=== PATIENT | female | born 1975 | race American Indian/Alaskan Native ===

== ENCOUNTER 2020-08-31 10:56 | Emergency (ER) | payer SELFPAY ==
[2020-08-31 11:48] VITALS: BP 146/91
--- NOTE | 2020-08-31 11:59 | Emergency Department Report ---
ED General Adult HPI - General Chief complaint: Extremity Injury, Upper Stated complaint: RT SHOUDLER PAIN RT HIP PAINS Time Seen by Provider: 08/31/20 11:40 Source: patient Mode of arrival: Ambulatory Limitations: No Limitations - History of Present Illness Initial comments: 44-year-old female with a past medical history of diabetes presents to the ER w ith complaints of right shoulder pain and right hip pain. Patient states that she has been having this right shoulder pain for few months, but she states that in June she noticed that the pain started radiating down her right arm, with numbness and tingling in her fingers. She states that the right hip pain has been intermittent for a year, but in May has been more constant. She states that the pain does radiate down into her right leg. She states that the pain in her right shoulder and her right hip is worse with movement, and with ambulation. She has been taking [id number] ibuprofen and arthritis medication without much relief. She states that she does not have a primary care doctor and has not followed up with a PCP nor exercise specialist since she has been having the symptoms. She states that she had sciatica in the past but it was during the . She denies any known history of degenerative joint disease or herniated disc. She reports no neck pain, chest pain, shortness of breath, abdominal pain, bowel or bladder incontinence, saddle anesthesia, lower extremity weakness, numbness or tingling, fever chills or any other symptoms. MD Complaint: Right shoulder pain; right hip pain -: month(s) - Related Data Previous Rx's Medication Instructions Recorded Last Taken Type Acetaminophen/Codeine [Tylenol 1 tab PO Q4HR PRN #12 tablet 08/31/20 Unknown Rx /Codeine # 3 tab] Ketorolac [Toradol] 10 mg PO Q6H PRN #20 tablet 08/31/20 Unknown Rx Allergies Allergy/AdvReac Type Severity Reaction Status Date / Time No Known Allergies Allergy Unverified 08/31/20 11:44 ED Review of Systems ROS: Stated complaint: RT SHOUDLER PAIN RT HIP PAINS Other details as noted in HPI Comment: All other systems reviewed and negative Respiratory: denies: cough, shortness of breath, wheezing Cardiovascular: denies: chest pain, palpitations, dyspnea on exertion, edema, syncope, paroxysmal nocturnal dyspnea Gastrointestinal: denies: abdominal pain, nausea, vomiting, diarrhea, constipation, hematemesis, melena, hematochezia Genitourinary: denies: urgency, dysuria, discharge Musculoskeletal: arthralgia, other (right hip pain). denies: back pain Skin: denies: rash, lesions Neurological: numbness (right fingers). denies: headache, weakness, paresthesias, confusion, abnormal gait, vertigo Psychiatric: denies: anxiety, depression ED Past Medical Hx - Past Medical History Previous Medical History?: Yes Hx Diabetes: Yes - Surgical History Past Surgical History?: Yes Additional Surgical History: tubal ligation - Social History Smoking Status: Never Smoker Substance Use Type: None - Medications Home Medications: Home Medications Medication Instructions Recorded Confirmed Last Taken Type Acetaminophen/Codeine [Tylenol 1 tab PO Q4HR PRN #12 tablet 08/31/20 Unknown Rx /Codeine # 3 tab] Ketorolac [Toradol] 10 mg PO Q6H PRN #20 tablet 08/31/20 Unknown Rx ED Physical Exam - General Limitations: No Limitations General appearance: alert, in no apparent distress - Head Head exam: Present: atraumatic, normocephalic, normal inspection - Eye Eye exam: Present: normal appearance, PERRL, EOMI Pupils: Present: normal accommodation - ENT ENT exam: Present: normal exam, mucous membranes moist - Neck Neck exam: Present: normal inspection, full ROM. Absent: tenderness - Respiratory Respiratory exam: Present: normal lung sounds bilaterally. Absent: respiratory distress - Cardiovascular Cardiovascular Exam: Present: regular rate, normal rhythm, normal heart sounds - GI/Abdominal GI/Abdominal exam: Present: soft. Absent: distended, tenderness - Extremities Exam Extremities exam: Present: normal inspection, full ROM, tenderness (She has no a pparent tenderness to the right hip but she does have pain on internal and external rotation of the hip.), other (Mild tenderness to palpation proximal right humerus. She has full range of motion of the right shoulder but it is painful. No swelling, no bruising, no ecchymosis or deformity.). Absent: pedal edema, calf tenderness - Back Exam Back exam: Present: normal inspection, full ROM. Absent: tenderness, paraspinal tenderness, vertebral tenderness - Neurological Exam Neurological exam: Present: alert, oriented X3, CN II-XII intact, normal gait. Absent: motor sensory deficit - Psychiatric Psychiatric exam: Present: normal affect, normal mood - Skin Skin exam: Present: intact ED Course Vital Signs 08/31/20 11:45 Temperature 98.7 F Pulse Rate 79 Respiratory 18 Rate Blood Pressure 146/91 O2 Sat by Pulse 99 Oximetry ED Medical Decision Making - Radiology Data Patient: ADAM PECK MR#: [id number] 90 : 1975 Acct:[id number] Age/Sex: 44 / F ADM Date: 08/31/20 Loc: ED Attending Dr: Ordering Physician: JULISA CORONEL Date of Service: 08/31/20 Procedure(s): XR hip 2-3V RT Accession Number(s): [id number] cc: JULISA CORONEL Fluoro Time In Minutes: RIGHT HIP 3 VIEW(S) INDICATION / CLINICAL INFORMATION: Pain COMPARISON: None available. FINDINGS: BONES / JOINT(S): No acute fracture or malalignment. No significant arthritis. SOFT TISSUES: Amorphous calcification seen adjacent to both greater trochanters, measuring up to 1.5 cm on the right and 1.0 cm on the left, likely reflecting calcium hydroxyapatite deposition of the gluteal tendons. Soft tissues are otherwise unremarkable. ADDITIONAL FINDINGS: None. Signer Name: Cassandra Chapman MD Signed: 08/31/2020 12:36 PM Workstation Name: [id number] Transcribed By: JS Dictated By: CASSANDRA CHAPMAN MD Electronically Authenticated By: CASSANDRA CHAPMAN MD Signed Date/Time: 08/31/20 1236 DD/ 1235 TD/TT: Patient: ADAM PECK MR#: [id number] 90 : 1975 Acct:[id number] Age/Sex: 44 / F ADM Date: 08/31/20 Loc: ED Attending Dr: Ordering Physician: JULISA CORONEL Date of Service: 08/31/20 Procedure(s): XR spine lumbosacral 2-3V Accession Number(s): [id number] cc: JULISA CORONEL Fluoro Time In Minutes: XR spine lumbosacral 2-3V INDICATION / CLINICAL INFORMATION: Sciatica/pain. COMPARISON: None available. FINDINGS: BONES/JOINT(S): Mild left convex curvature of the lumbar spine, centered at L3. Posterior vertebral body alignment is preserved. Vertebral body heights and disc spaces are maintained. No evidence of fracture. PARASPINAL SOFT TISSUES:No significant abnormality. ADDITIONAL FINDINGS: None. Signer Name: Cassandra Chapman MD Signed: 08/31/2020 12:35 PM Workstation Name: [id number] Transcribed By: VIKTOR Dictated By: CASSANDRA CHAPMAN MD Electronically Authenticated By: CASSANDRA CHAPMAN MD Signed Date/Time: 08/31/20 1235 DD/ 1234 TD/TT: Patient: ADAM PECK MR#: [id number] 90 : 1975 Acct:[id number] Age/Sex: 44 / F ADM Date: 08/31/20 Loc: ED Attending Dr: Ordering Physician: JULISA CORONEL Date of Service: 08/31/20 Procedure(s): XR shoulder 2+V RT Accession Number(s): [id number] cc: JULISA CORONEL Fluoro Time In Minutes: XR shoulder 2+V RT INDICATION / CLINICAL INFORMATION: Pain. COMPARISON: None available. FINDINGS/IMPRESSION: No acute fracture or malalignment. Subacromial space is preserved with tiny amorphous calcification along the greater tuberosity, likely reflecting tiny focus of calcium hydroxyapatite deposition (calcific tendinitis) in the rotator cuff. No soft tissue abnormality. Signer Name: Cassandra Chapman MD Signed: 08/31/2020 12:34 PM Workstation Name: [id number] Transcribed By: VIKTOR Dictated By: CASSANDRA CHAPMAN MD Electronically Authenticated By: CASSANDRA CHAPMAN MD Signed Date/Time: 08/31/20 1234 DD/ 1233 TD/TT: Critical care attestation.: If time is entered above; I have spent that time in minutes in the direct care of this critically ill patient, excluding procedure time. ED Disposition Clinical Impression: Tendonitis of shoulder, right, Chronic pain of right hip, Lumbar radiculopathy, chronic Disposition: DC- TO HOME OR SELFCARE Is pt being admited?: No Does the pt Need Aspirin: No Condition: Stable Instructions: Hip Pain, Calcific Tendinitis, Radicular Pain Additional Instructions: Take the Tylenol 3's and the Toradol as prescribed. I recommend that you follow-up with the exercise specialist listed on your discharge instructions. Recommend follow-up with the specialist for outpatient MRI. There is also a primary care doctor listed on your discharge instructions that you can also follow-up with. Return to the ER if your symptoms changes or worsens. Prescriptions: Ketorolac [Toradol] 10 mg PO Q6H PRN #20 tablet PRN Reason: Pain Acetaminophen/Codeine [Tylenol /Codeine # 3 tab] 1 tab PO Q4HR PRN #12 tablet PRN Reason: Pain Referrals: JERI HOANG MD [Staff Physician] - 7-10 days BRETT BAKER MD [Staff Physician] - 7-10 days Forms: Work/School Release Form(ED) Time of Disposition: 12:50
--- NOTE | 2020-08-31 12:39 | XRay Report ---
XR shoulder 2+V RT INDICATION / CLINICAL INFORMATION: Pain. COMPARISON: None available. FINDINGS/IMPRESSION: No acute fracture or malalignment. Subacromial space is preserved with tiny amorphous calcification a long the greater tuberosity, likely reflecting tiny focus of calcium hydroxyapatite deposition (calci fic tendinitis) in the rotator cuff. No soft tissue abnormality. Signer Name: Cody Chapman MD Signed: 08/31/2020 12:34 PM Workstation Name: [id number]
--- NOTE | 2020-08-31 12:39 | XRay Report ---
XR spine lumbosacral 2-3V INDICATION / CLINICAL INFORMATION: Sciatica/pain. COMPARISON: None available. FINDINGS: BONES/JOINT(S): Mild left convex curvature of the lumbar spine, centered at L3. Posterior vertebral b eleazar alignment is preserved. Vertebral body heights and disc spaces are maintained. No evidence of fra cture. PARASPINAL SOFT TISSUES:No significant abnormality. ADDITIONAL FINDINGS: None. Signer Name: Cody Chapman MD Signed: 08/31/2020 12:35 PM Workstation Name: [id number]
--- NOTE | 2020-08-31 12:41 | XRay Report ---
RIGHT HIP 3 VIEW(S) INDICATION / CLINICAL INFORMATION: Pain COMPARISON: None available. FINDINGS: BONES / JOINT(S): No acute fracture or malalignment. No significant arthritis. SOFT TISSUES: Amorphous calcification seen adjacent to both greater trochanters, measuring up to 1.5 cm on the right and 1.0 cm on the left, likely reflecting calcium hydroxyapatite deposition of the gl uteal tendons. Soft tissues are otherwise unremarkable. ADDITIONAL FINDINGS: None. Signer Name: Cody Chapman MD Signed: 08/31/2020 12:36 PM Workstation Name: [id number]
== END 2020-08-31 13:55 | disposition home or self-care (01) ==
LOC: ED 10:56
DX: M75.82 Other shoulder lesions, left shoulder (principal); M25.551 Pain in right hip; M54.16 Radiculopathy, lumbar region; G89.29 Other chronic pain; E11.9 Type 2 diabetes mellitus without complications; Z98.51 Tubal ligation status; Z79.899 Other long term (current) drug therapy
CPT/HCPCS: 72100; 99283